=== PATIENT | female | born 1990 | race Caucasian/White ===

== ENCOUNTER 2021-11-18 15:42 | Emergency (ER) | payer OTHER ==
[~2021-11-18 15:42] MED LIST: ALBUTEROL2.5 MG/3 M INH; BENTYL 20MG TAB20 MG PO; DOXYCYCLINE HY100 MG PO; PREDNISONE20 MG PO; VENTOLIN HFA 66.7 GM INH; ZOFRAN ODT4 MG PO
[2021-11-18 16:07] LABS: HEMOGLOBIN 15.5 gm/dl (12.3-15.3); RED BLOOD COUNT 4.81 M/UL (4.00-5.10)
[2021-11-18 16:37] LABS: BUN/CREATININE RATIO 10 (0-10)
[2021-11-18 16:41] LABS: WHITE BLOOD COUNT 12.3 K/UL (4.5-11.0)
== END 2021-11-18 21:50 | disposition home or self-care (01) ==
LOC: ER1 15:42
PROVIDERS: Physician Assistant
DX: R07.89 Other chest pain (principal); I10 Essential (primary) hypertension; Z91.040 Latex allergy status; F17.210 Nicotine dependence, cigarettes, uncomplicated; E07.9 Disorder of thyroid, unspecified
CPT/HCPCS: 71045; 80053; 82550; 82553; 83874; 84439; 84443; 84484; 85025; 85379; 93005; 96374; 99285; Q9967

== ENCOUNTER 2021-11-20 16:55 | Emergency (ER) | payer SELFPAY | END 2021-11-20 17:09 | disposition left against medical advice (07) | LOC: ER1 16:55 | DX: Z53.21 Procedure and treatment not carried out due to patient leaving prior to being seen by health care provider (principal) ==

== ENCOUNTER → 2021-11-20 | Outpatient (CLI) | payer OTHER ==
[2021-11-20 08:59] LABS: HEMOGLOBIN 16.1 gm/dl (12.3-15.3); RED BLOOD COUNT 5.06 M/UL (4.00-5.10); WHITE BLOOD COUNT 15.1 K/UL (4.5-11.0)
[2021-11-20 09:24] LABS: BUN/CREATININE RATIO 12 (0-10)
== END ==
LOC: LAB 08:30
PROVIDERS: Nurse Practitioner
DX: R00.2 Palpitations (principal); R07.9 Chest pain, unspecified; R53.83 Other fatigue; R11.2 Nausea with vomiting, unspecified; I10 Essential (primary) hypertension; E03.9 Hypothyroidism, unspecified
CPT/HCPCS: 36415; 80053; 80061; 84443; 85025